=== PATIENT | male | born 1960 | race Caucasian/White ===

== ENCOUNTER → 2021-12-28 16:22 | Outpatient (BNVA) | payer MEDICARE, SELFPAY | PROVIDERS: Family Provider Family Medicine; PCP Family Medicine; Visit Provider Nurse Practitioner Family | DX: R30.9 Painful micturition, unspecified (principal) | CPT/HCPCS: 81000; 81003; 87077; 87086; 87184 ==

== ENCOUNTER → 2022-04-14 16:53 | Outpatient (BNVA) | payer MEDICARE, SELFPAY | PROVIDERS: Family Provider Family Medicine; PCP Family Medicine; Visit Provider Nurse Practitioner Family | DX: Z01.818 Encounter for other preprocedural examination (principal); R73.09 Other abnormal glucose | CPT/HCPCS: 83036 ==

== ENCOUNTER → 2024-05-29 14:32 | Outpatient (BNVA) | payer MEDICARE, MEDICAID, SELFPAY | PROVIDERS: PCP Family Medicine; Visit Provider Family Medicine | DX: R30.0 Dysuria (principal) | CPT/HCPCS: 81000 ==

== ENCOUNTER → 2024-05-30 | Outpatient (BNVA) | payer MEDICARE, MEDICAID, SELFPAY | PROVIDERS: PCP Family Medicine; Visit Provider Family Medicine | DX: L02.512 Cutaneous abscess of left hand (principal); R30.0 Dysuria; N39.0 Urinary tract infection, site not specified; L01.00 Impetigo, unspecified; M34.9 Systemic sclerosis, unspecified; R53.1 Weakness; R29.6 Repeated falls; I89.0 Lymphedema, not elsewhere classified | CPT/HCPCS: 85025; 87077; 87086; 87184 ==

== ENCOUNTER 2024-06-10 12:53 | Outpatient (CLI) | payer MEDICARE, MEDICAID, SELFPAY ==
--- NOTE | 2024-06-10 13:00 | CT_ITS ---
WS: [id number] CT ABDOMEN PELVIS TECHNIQUE: Noncontrast CT of the abdomen and pelvis with coronal and sagittal reformatted images. CLINICAL INFORMATION: K63.89 - Other specified diseases of intestine COMPARISON: 06/02/2024 DLP: 609.[address] scans at [facility] use at least one of these dose optimization techniques: automated exposure control; mA and/or kV adjustment per patient size (includes targeted exams where dose is matched to clinical indication); or iterative reconstruction. FINDINGS: Cirrhotic liver. Splenomegaly. Previously described T shaped radiopaque foreign body within the sigmoid colon measuring up to 2 cm appears unchanged and location compared to previous., Correlation with clinical history. Moderate ascites is unchanged. Incidental hepatic cysts. Cholelithiasis. Tiny pericardial effusion. Small opacity RIGHT middle lobe partially visualized measuring 6 mm. Adrenal glands are normal. No hydronephrosis in either kidney. Renal parenchymal enhancement cannot be assessed without contrast. Normal noncontrast pancreas. No free air or high-grade bowel obstruction. Fat-containing umbilical hernia. Avascular necrosis in the femoral heads bilaterally unchanged. CT/CT abdomen pelvis wo con [id number] IMPRESSION: 1. No significant changes since 06/02/2024. 2. Cirrhosis with splenomegaly. 3. Moderate ascites is unchanged. 4. Trace pericardial fluid. 5. Dense cholelithiasis. 6. Stable T-shaped foreign body in the sigmoid colon unchanged in location. Re commend correlation with clinical history.
[2024-06-10 13:22] LABS: Basophils % 0.3 %; Hematocrit 37.1 % (37-53); Lymphocytes # 1.4 10^3/uL (0.8-4.8); Lymphocytes % 11.8 %; Mean Corpuscular HGB Conc 31.3 g/dL (30-55); Mean Corpuscular Hemoglobin 25.9 pg (27-33); Mean Corpuscular Volume 82.8 fl (82-101); Mean Platelet Volume 11.6 fL (7.4-10.4); Monocytes # 0.9 10^3/uL (0.2-0.9); Monocytes % 7.8 %; Neutrophils # 9.17 10^3/uL (1.8-7.7); Neutrophils % 79.2 %; Nucleated Red Blood Cells % 0 %; Platelet Count 159 10^3/cmm (157-399); Red Blood Count 4.48 10^6/uL (3.85-5.65); Red Cell Distribution Width 19.3 % (12.1-15.1); White Blood Count 11.57 10^3/uL (3.29-11.43)
[2024-06-10 13:24] LABS: Erythrocyte Sedimentation Rate 73 mm/hr (0-10)
[2024-06-10 13:29] LABS: Reticulocyte % 2.6 % (0.5-2.0)
[2024-06-10 13:32] LABS: LAB Peripheral Smear Sent for Review
[2024-06-10 13:39] LABS: Alanine Aminotransferase 17 U/L (0-41); Albumin Level 3.2 g/dL (3.5-5.2); Alkaline Phosphatase 626 U/L (40-130); Blood Urea Nitrogen 20 mg/dL (8-23); C Reactive Protein 54.4 mg/L (0.0-4.9); Calcium 8.3 mg/dL (8.5-10.5); Carbon Dioxide 17 mmol/L (22-29); Chloride 93 mmol/L (98-107); Globulin 4.2 g/dL (1.3-4.6); Glomerular Filtration Rate 75.7 mL/min (90-130); Glucose 123 mg/dL (65-115); Osmolality Calculated 264 mOsm/kg (285-295); Sodium 125 mmol/L (136-145); Total Bilirubin 1.1 mg/dL (0.15-1.2); Total Protein 7.4 g/dL (6.6-8.7)
[2024-06-10 13:44] LABS: Anion Gap 19.2 (5-19); Potassium 4.2 mmol/L (3.5-5.1)
[2024-06-10 13:45] LABS: Aspartate Amino Transferase 31 U/L (0-40)
[2024-06-10 13:50] LABS: Slide Review Slide Review Perform
== END 2024-06-10 12:54 | disposition home or self-care (01) ==
LOC: RAD 12:54
PROVIDERS: PCP Family Medicine; Visit Provider Family Medicine
DX: K63.89 Other specified diseases of intestine (principal); R18.8 Other ascites; D61.818 Other pancytopenia; L03.119 Cellulitis of unspecified part of limb; L02.519 Cutaneous abscess of unspecified hand; L01.00 Impetigo, unspecified; K74.60 Unspecified cirrhosis of liver; R16.1 Splenomegaly, not elsewhere classified; K80.20 Calculus of gallbladder without cholecystitis without obstruction; R93.89 Abnormal findings on diagnostic imaging of other specified body structures; K76.89 Other specified diseases of liver; R91.8 Other nonspecific abnormal finding of lung field; K42.9 Umbilical hernia without obstruction or gangrene; M87.051 Idiopathic aseptic necrosis of right femur; M87.052 Idiopathic aseptic necrosis of left femur; D72.828 Other elevated white blood cell count
CPT/HCPCS: 74176; 80053; 80503; 85025; 85045; 85651; 86140

== ENCOUNTER → 2024-06-16 14:10 | Outpatient (BNVA) | payer MEDICARE, MEDICAID, SELFPAY | PROVIDERS: PCP Family Medicine; Visit Provider Student in an Organized Health Care Education/Training Program | DX: K74.60 Unspecified cirrhosis of liver (principal); R18.8 Other ascites | CPT/HCPCS: 99204 ==

== ENCOUNTER → 2025-02-24 14:13 | Outpatient (BNVA) | payer MEDICARE, MEDICAID, SELFPAY | PROVIDERS: PCP Family Medicine; Visit Provider Family Medicine | DX: R35.0 Frequency of micturition (principal); N39.0 Urinary tract infection, site not specified | CPT/HCPCS: 81000 ==